=== PATIENT | female | born 2005 | race Caucasian/White ===

== ENCOUNTER 2024-09-11 12:10 | Outpatient (CLI) | payer OTHER, SELFPAY ==
[2024-09-11 12:33] LABS: Hemoglobin* 12.5 gm/dL (12.0-16.0)
[2024-09-11 14:07] LABS: Ferritin* 31.4 ng/mL (6.24-137.0)
== END 2024-09-11 12:11 | disposition home or self-care (01) ==
PROVIDERS: Visit Provider Family Medicine
DX: R53.83 Other fatigue (principal)
CPT/HCPCS: 36415; 82728; 85018